=== PATIENT | male | born 1970 ===

== ENCOUNTER 2020-11-23 13:01 | Emergency (ER) ==
[~2020-11-23] VITALS: Ht 188 cm; Wt 122.5 kg
[2020-11-23] MEDS ORDERED: SODIUM CHLORIDE 0.9% 100 ML ONE (14:28)
[2020-11-23] MEDS ORDERED: CASIRIVIMAB/IMDEVIMAB 10 ML in SODIUM CHLORIDE 0.9% 100 ML IV ONE (14:30)
== END 2020-11-23 16:25 | disposition home or self-care (01) ==
LOC: ER 14:15
DX: U07.1 COVID-19 (principal); R05.9 Cough, unspecified; I10 Essential (primary) hypertension
CPT/HCPCS: 99283; J7050